=== PATIENT | female | born 1950 | race Caucasian/White ===

== ENCOUNTER → 2017-03-24 | Outpatient (CLI) | payer OTHER ==
[~2017-03-24] MED LIST: ASPIR 8181 MG PO; ATORVASTATIN CA40 MG PO; CELEBREX 200 M200 M1 PO; FISH OIL 1,0001 EAC8 PO; GLUCOPHAGE XR500 MG PO; LISINOPRIL-HCT1 EAC1 PO; MEGA BIOTIN10000 MCG PO; MULTIVITAMINS PO; VITAMIN D3400 UNI2 PO; WELLBUTRIN 100100 MG PO; WELLBUTRIN XL150 MG PO; ZANTAC 150MG T150 MG PO; [UNRECOGNIZED DRUG - OTHER]
[2017-03-24 14:48] LABS: HEMATOCRIT 26.8 % (37.0-47.0); HEMOGLOBIN 8.5 gm/dL (12.0-15.0); MCH 22.8 pg (26.0-34.0); MCHC 31.6 g/dL (28.0-37.0); MCV 72.1 fL (80.0-100.0); RBC 3.71 mil/uL (4.20-5.00); RDW 15.5 % (10.5-14.5); WBC 6.1 thou/uL (4.0-11.0)
[2017-03-24 15:06] LABS: % SATURATION 4 % (20-39); IRON 18 ug/dL (50-170); TIBC 481 ug/dL (250-450); UIBC 463 ug/dL
[2017-03-24 15:16] LABS: ALBUMIN 4.1 g/dL (3.4-5.0); BUN 13 mg/dL (7-18); CALCIUM 9.1 mg/dL (8.5-10.1); CREATININE 1.1 mg/dL (0.6-1.0)
[2017-03-24 15:17] LABS: ALKALINE PHOSPHATASE 93 U/L (46-116); ANION GAP 9 mmol/L (7-16); CHLORIDE 102 mmol/L (98-107); CO2 26 mmol/L (21-32); GLUCOSE 85 mg/dL (74-106); POTASSIUM 3.5 mmol/L (3.5-5.1); SODIUM 137 mmol/L (136-145); TOTAL BILIRUBIN 0.3 mg/dL (<0.1-1.0)
[2017-03-24 15:18] LABS: SGOT 19 U/L (15-37); SGPT 21 U/L (30-65); TOTAL PROTEIN 7.5 g/dL (6.4-8.2)
[2017-03-24 15:34] LABS: CHOLESTEROL 232 mg/dL (<200); HDL CHOLESTEROL 77 mg/dL (>40); LDL CHOLESTEROL 143 mg/dL (<100); TRIGLYCERIDE 62 mg/dL (<150); VLDL 12 mg/dL (<40)
== END ==
LOC: LABMALL 14:02
PROVIDERS: Neuromusculoskeletal Medicine & OMM
DX: D64.9 Anemia, unspecified (principal); I10 Essential (primary) hypertension; R07.9 Chest pain, unspecified

== ENCOUNTER → 2017-04-13 | Outpatient (CLI) | payer OTHER ==
[2017-04-13 16:01] LABS: HEMATOCRIT 27.9 % (37.0-47.0); HEMOGLOBIN 8.8 gm/dL (12.0-15.0); MCH 21.9 pg (26.0-34.0); MCHC 31.7 g/dL (28.0-37.0); MCV 69.2 fL (80.0-100.0); RBC 4.03 mil/uL (4.20-5.00); WBC 6.1 thou/uL (4.0-11.0)
[2017-04-13 16:18] LABS: ANION GAP 8 mmol/L (7-16); BUN 12 mg/dL (7-18); CALCIUM 9.4 mg/dL (8.5-10.1); CHLORIDE 105 mmol/L (98-107); CHOLESTEROL 236 mg/dL (<200); CO2 28 mmol/L (21-32); GLUCOSE 114 mg/dL (74-106); HDL CHOLESTEROL 73 mg/dL (>40); LDL CHOLESTEROL 143 mg/dL (<100); POTASSIUM 4.1 mmol/L (3.5-5.1); SODIUM 141 mmol/L (136-145); TC:HDL 3.2 Ratio (Not establshd); TRIGLYCERIDE 101 mg/dL (<150); VLDL 20 mg/dL (<40)
[2017-04-14 05:10] LABS: GLYCOHEMOGLOBIN (HGB A1C) 5.8 % (4.8-5.6)
== END ==
LOC: LAB 15:36
PROVIDERS: Neuromusculoskeletal Medicine & OMM
DX: I10 Essential (primary) hypertension (principal); E11.9 Type 2 diabetes mellitus without complications

== ENCOUNTER → 2017-04-23 | Outpatient (CLI) | payer OTHER ==
[2017-04-23 13:26] VITALS: BP 129/68
[2017-04-23 14:50] VITALS: BP 97/56
== END ==
LOC: OPONC 09:32
DX: D50.9 Iron deficiency anemia, unspecified (principal)
CPT/HCPCS: 95000; 95001

== ENCOUNTER → 2017-05-01 | Outpatient (CLI) | payer OTHER ==
[2017-05-01 13:39] VITALS: BP 133/75
[2017-05-01 15:20] VITALS: BP 130/78
== END ==
LOC: OPONC 00:23
DX: D50.9 Iron deficiency anemia, unspecified (principal)
CPT/HCPCS: 95000; 95001

== ENCOUNTER → 2017-05-06 | Outpatient (CLI) | payer OTHER ==
--- NOTE | ~2017-05-06 | EXE ---
[facility] [employer] [address] STRESS ECHOCARDIOGRAM Name: SAMSON FAM Room #: REG Ahsan#: [id number] Admission: 05/06/17 Attend Phys: Bryce Carlin II Discharge: Date of : 50 Date of Service: 05/07/17 1252 Report #: [id number] THIS REPORT FOR: //name// APPROVED REPORT Exam: Stress Echocardiogram Indication: Chest pain Patient Location: Out-Patient Stress Nurse: Grace Latif RN Status: routine HR: 73 bpm Rhythm: NSR Medical History Medical History: PFO, murmur Cardiac Risk Factors: HTN, Hyperlipidemia, DM Procedure The patient underwent an Exercise Stress Test using the Flaco Protocol. Blood pressure, heart rate, and EKG were monitored. An Echocardiogram was performed by commercial pest control technician in four stages in quad fashion. At peak stress, four selected images were obtained and placed side by side with resting images for comparison. Stress Test Details Stress Test: Exercise stress testing was performed using a Flaco protocol. HR Resting HR: 73 bpm Max Heart Rate (APMHR): 153 bpm Max HR Achieved: 153 bpm Target HR (85% APMHR): 130 bpm % of APMHR: 100 Recovery HR: 90 bpm HR response to stress: Normal HR response to stress BP Resting BP: 149/85 mmHg Max BP: 190/92 mmHg Recovery BP: 144/80 mmHg ECG Resting ECG: Sinus Rhythm Stress ECG: Sinus Tachycardia ST Change: Upsloping ST depression Recovery ECG: Sinus Rhythm [facility] [employer] [place] [address] STRESS ECHOCARDIOGRAM Name: SAMSON FAM Karyn Room #: REG [facility]#: [id number] Admission: 05/06/17 Attend Phys: Bryce Carlin II Discharge: Date of : 50 Date of Service: 05/07/17 1252 Report #: [id number] Clinical Reason for Termination: Moderate dyspnea Stress Symptoms: chest tightness at 2 mins. Chest pain 4-5/10 at 5 mins. Moderate dyspnea Exercise duration: 6 min 27 sec Exercise capacity: 8.3 METs Stress ECG Conclusion 1. SUBJECTIVELY NEGATIVE FOR ISCHEMIA 2. ELECTROCARDIOGRAPHICALLY SUGGESTIVE BUT DID NOT ACHIEVE DIAGNOSTIC CRITERIA 3.AVERAGE FUNCTIONAL CAPACITY Pre-Stress Echo The resting Echocardiogram showed normal left ventricular contractility with an estimated Ejection Fraction of about 55-60%. Trace to mild MR, Mild aortic regurgitation, trace TR. Aneurysmal interatrial septum noted. History of PFO. Post-Stress Echo The stress Echocardiogram showed normal left ventricular contractility with an estimated Ejection Fraction of about 65-70%. Normal augmentation of wall motion in all segments on post stress images. Clinical No clinical or ECG evidence for ischemia. Conclusion Clinical Response: Non-ischemic Exercise Capacity: Average Stress ECG Response: Non-ischemic Stress Echo Images: Non-ischemic 1. LOW RISK STUDY Other Information Study Quality: Good <Conclusion> 1. LOW RISK STUDY <ELECTRONICALLY SIGNED> By: Raphael Chan MD 05/07/17 1252 125 51 Raphael Chan MD /INF
== END ==
LOC: CV 12:43
DX: R07.9 Chest pain, unspecified (principal)

== ENCOUNTER → 2017-05-07 | Outpatient (CLI) | payer OTHER ==
[2017-05-07 13:40] VITALS: BP 112/67
[2017-05-07 15:55] VITALS: BP 113/64
== END ==
LOC: OPONC 00:53
DX: D50.9 Iron deficiency anemia, unspecified (principal)
CPT/HCPCS: 95000; 95001

== ENCOUNTER → 2017-06-04 | Outpatient (CLI) | payer OTHER | LOC: CAT 10:10 | DX: M47.892 Other spondylosis, cervical region (principal); R13.19 Other dysphagia ==

== ENCOUNTER → 2017-06-15 | Outpatient (CLI) | payer OTHER ==
[2017-06-15 13:31] LABS: HEMATOCRIT 38.6 % (37.0-47.0); HEMOGLOBIN 12.6 gm/dL (12.0-15.0); MCHC 32.7 g/dL (28.0-37.0); MCV 79.6 fL (80.0-100.0); RBC 4.85 mil/uL (4.20-5.00); RDW 25.5 % (10.5-14.5); WBC 4.9 thou/uL (4.0-11.0)
[2017-06-15 13:42] LABS: % SATURATION 11 % (20-39); IRON 44 ug/dL (50-170); TIBC 419 ug/dL (250-450); UIBC 375 ug/dL
== END ==
LOC: LABMALL 12:53
PROVIDERS: Neuromusculoskeletal Medicine & OMM
DX: D64.9 Anemia, unspecified (principal)